=== PATIENT | female | born 1995 | race Caucasian/White ===

== ENCOUNTER → 2017-10-04 | Emergency (ER) | payer OTHER ==
[~2017-10-04] VITALS: Ht 157.5 cm; Wt 59.0 kg
[~2017-10-04] MED LIST: FLOVENT 110MCG7.9 GM IH; MEDROL4 MG PO; PROMETHAZINE W118 ML PO; PROVENTIL3 ML/2.5 M IH; SINGULAIR 10MG10 MG PO; TUSSAFED EX LI118 ML PO; ZITHROMAX500 MG PO; ZYNCOF 20-400120 ML PO
== END | disposition left against medical advice (07) ==
LOC: ER 12:20
DX: Z53.20 Procedure and treatment not carried out because of patient's decision for unspecified reasons (principal)

== ENCOUNTER 2018-07-25 01:18 | Inpatient (IN) | payer OTHER ==
[~2018-07-25] VITALS: Ht 154.9 cm; Wt 65.8 kg
[2018-07-25] MEDS ORDERED: PRENATAL TABLE1 EAC1 PO (12:32)
== END 2018-07-27 18:11 | DRG 833 ==
LOC: OBS/DEL 01:18 → LDR 12:25 → OBS/DEL 12:25 → SURG-SUITE 14:52
PROVIDERS: ADMIT Obstetrics & Gynecology
PROC: 4A1HXCZ Monitoring of Products of Conception, Cardiac Rate, External Approach (ICD-10-PCS; principal; 2018-07-25)
DX: O26.893 Other specified pregnancy related conditions, third trimester (principal); E86.0 Dehydration; Z34.03 Encounter for supervision of normal first pregnancy, third trimester; K52.89 Other specified noninfective gastroenteritis and colitis

== ENCOUNTER → 2022-09-16 | Emergency (ER) | payer OTHER ==
[~2022-09-16] VITALS: Ht 154.9 cm; Wt 56.7 kg
[~2022-09-16] MED LIST changes: +PRENATAL TABLE1 EAC1 PO
== END | disposition home or self-care (01) ==
LOC: ER 04:46 → EMR PED 04:50 → ER 04:50
DX: R11.11 Vomiting without nausea (principal); R50.9 Fever, unspecified; Z91.013 Allergy to seafood

== ENCOUNTER 2022-10-19 12:56 | Emergency (ER) | payer OTHER ==
[~2022-10-19] VITALS: Ht 154.9 cm; Wt 56.7 kg
== END 2022-10-19 18:40 | disposition home or self-care (01) ==
LOC: ER 12:56
DX: B34.9 Viral infection, unspecified (principal); J00 Acute nasopharyngitis [common cold]; Z91.013 Allergy to seafood; Z20.822 Contact with and (suspected) exposure to COVID-19

== ENCOUNTER 2023-02-14 06:27 | Emergency (ER) | payer OTHER ==
[~2023-02-14] VITALS: Ht 154.9 cm; Wt 58.1 kg
== END 2023-02-14 11:32 | disposition home or self-care (01) ==
LOC: ER 06:27
DX: B34.9 Viral infection, unspecified (principal); Z20.822 Contact with and (suspected) exposure to COVID-19